=== PATIENT | female | born 1990 | race Caucasian/White ===

== ENCOUNTER 2025-01-19 19:29 | Emergency (ER) | payer BC, SELFPAY ==
[2025-01-19 19:31] VITALS: BP 163/99
--- NOTE | 2025-01-19 20:07 | ED.GENMED ---
History of Present Illness
General
Chief Complaint: Allergic Reaction
Source: patient
Time Seen by Provider: 01/19/25 19:47
History of Present Illness
History of Present Illness:
34-year-old female presents to the emergency room complaining of a itchy rash on her upper abdomen, chest and now neck. Symptoms began yesterday. She was seen at an urgent care today recommended to take Zyrtec. She did take Zyrtec today. When
she noticed the rash extending up towards her neck she also noted a funny feeling in her throat and she thought perhaps her tongue was being swollen. Her [id number]-fed thought her tongue looked larger than normal prompting her to come to the
emergency room. Patient denies any shortness of breath. No new foods or lotions.
Phy Exam
Physical Exam
Physical Exam:
General: Awake, Alert, Oriented X3. No acute distress.
Vitals: unremarkable
Head: Atraumatic
Eyes: Pupils equal, EOMI
Mouth: No angioedema of the lips noted
Throat: Airway intact, no exudates, no angioedema of the oropharynx noted
Neck: Trachea midline
Lungs: Clear and equal b/l
Heart: Regular rate, no murmurs
Abd: Soft, Nontender, No pulsatile mass
Neuro: Nonfocal
Skin: Warm, dry, macular papular type rash noted in the anterior chest up towards the base of the neck. Rash does not exist elsewhere.
Extremities: pulses equal b/l, no edema
Course
Orders/Labs/Results
Orders:
Orders
01/19/25 20:17
Diphenhydramine [Benadryl] 25 mg PO NOW STA
Vital Signs
Initial and Last Documented VS:
Initial Vital Signs
Temp Pulse Resp BP Pulse Ox
98.1 F 87 18 163/99 99
01/19/25 19:31 01/19/25 19:31 01/19/25 19:31 01/19/25 19:31 01/19/25 19:31
Last Documented Vital Signs
Temp Pulse Resp BP Pulse Ox
98.1 F 86 17 145/90 100
01/19/25 19:31 01/19/25 20:38 01/19/25 20:38 01/19/25 20:38 01/19/25 20:38
MDM/Problems Addressed
Differential Diagnosis Includes:
Allergic reaction, eczema , contact dermatitis
MDM/Problems Addressed:
Patient presents with rash which appears benign. I see no evidence for angioedema. Will treat with Benadryl and topical hydrocortisone.
*Pulse Oximetry
Patient hypoxic: no
*Critical Care Note
Total Time (30-74mins, 75-104mins- exclusive of procedures): Not Applicable
ED Attending Note
-
Portions of this chart may have been created with voice recognition software.� Occasional wrong word or��sound alike� substitutions may have occurred due to the inherent limitations of voice recognition software.
Discharge Plan
Departure
Patient Disposition: Home (Routine Discharge)
Date of Disposition: 01/19/25
Time of Disposition: 20:17
Patient with high blood pressure during this ER visit?: No
Condition: Good
Discharge Problem:
Atopic dermatitis
Prescriptions:
No Action
PNV cmb#95-ferrous fumarate-FA [] 1 EACH tablet
1 ea PO DAILY
metformin 500 MG tablet extended release 24 hr
2,000 mg PO DAILY
acetaminophen 325 MG tablet
650 mg PO Q4HPRN PRN (Reason: mild pain) 0RF
ibuprofen 600 MG tablet
600 mg PO Q4HPRN PRN (Reason: cramps) 0RF
Activity Restrictions/Additional Instructions:
You can take Benadryl 25 mg every 6 hours for itching. You can also use hydrocortisone cream on the rash. Follow-up with your [facility]
Interventions
Interventions:
*Risk Screen - Suicide Last Done: 01/19/25 19:34
*General Assessment Last Done: 01/19/25 19:34
*Neglect/Abuse Screening Last Done: 01/19/25 19:34
*ED COVID-19 Vaccine History Last Done: 01/19/25 19:34
*Nursing Disposition Last Done: 01/19/25 20:38
Discharge Date and Time
Discharge Date/Time: 01/19/25 20:38
Print Language: MAORI
[2025-01-19] MEDS: BENADRYL 25 MG PO (20:34)
[2025-01-19 20:38] VITALS: BP 145/90
== END 2025-01-19 20:38 | disposition home or self-care (01) ==
LOC: EMR 19:29
PROVIDERS: EMERGENCY PHYSICIAN Emergency Medicine; FAMILY PHYSICIAN Family Medicine
DX: L20.9 Atopic dermatitis, unspecified (principal); L29.9 Pruritus, unspecified; T78.40XA Allergy, unspecified, initial encounter
CPT/HCPCS: 99283

== ENCOUNTER 2025-03-07 11:08 | Emergency (ER) | payer BC, SELFPAY ==
[2025-03-07 11:08] VITALS: BMI 42.7
[2025-03-07 11:10] VITALS: BP 153/78
[2025-03-07 11:15] VITALS: BP 155/80
[2025-03-07 11:38] VITALS: BP 143/66
--- NOTE | 2025-03-07 12:23 | ED.GENMED ---
History of Present Illness
General
Chief Complaint: Headache
Source: patient
Exam Limitations: none
Time Seen by Provider: 03/07/25 12:07
History of Present Illness
History of Present Illness:
See MDM
Past History
Past History
ED Past Medical History: None
ED Past Surgical History: None
Social History
Tobacco: Non-smoker
Alcohol: None
Phy Exam
Physical Exam
Physical Exam:
See MDM
Course
Orders/Labs/Results
Orders:
Orders
03/07/25 12:21
0.9% Sodium Chloride 1000 ml [Nss] 1,000 ml IV BOLUS
Acetaminophen 1000MG/100Ml [Ofirmev] 1,000 mg in 100 ml IV ONCE
Acetaminophen IV Indication:: ED Narcotic Naive Pt-ONCE
03/07/25 12:32
Complete Blood Count/With Diff Urgent
Comprehensive Metabolic Panel Urgent
Abnormal Lab Results
03/07/25
12:32
WBC 12.8 H 10^3/uL
(4.8-10.8)
RBC 3.71 L 10^6/uL
(4.20-5.40)
Hgb 11.2 L g/dL
(12.0-16.0)
Hct 33.4 L %
(37.0-47.0)
Abs Immat Gran (auto) 0.1 H 10^3/uL
(0-0.05)
Absolute Neuts (auto) 9.3 H 10^3/uL
(1.4-6.5)
Absolute Monos (auto) 0.9 H 10^3/uL
(0.1-0.6)
Lymphocytes % 19.2 L %
(20.5-51.1)
Creatinine 0.5 L mg/dL
(0.6-1.0)
Glucose 67 L mg/dl
(70-99)
03/07/25 12:32
03/07/25 12:32
Vital Signs
Initial and Last Documented VS:
Initial Vital Signs
Temp Pulse Resp BP Pulse Ox
98.5 F 81 16 153/78 99
03/07/25 11:10 03/07/25 11:10 03/07/25 11:10 03/07/25 11:10 03/07/25 11:10
Last Documented Vital Signs
Temp Pulse Resp BP Pulse Ox
98.4 F 72 16 133/57 99
03/07/25 13:45 03/07/25 13:45 03/07/25 13:45 03/07/25 13:45 03/07/25 13:45
MDM/Problems Addressed
Differential Diagnosis Includes:
HPI and MDM Narrative:
34-year-old female presenting for evaluation of headache. Patient is G2, P1 at approximately 12 weeks gestation. She had spoke to her doctor about headache and dizziness for 2 days. This is associated with photophobia and phonophobia. She does
have a history of migraines but states this feels worse. Tylenol offers minimal relief. She denies nausea or vomiting or blurry vision. She is also complaining of mild vaginal spotting but is not necessarily concerned about that. I did a bedside
ultrasound confirming live IUP with heartbeat in the 140s.. She denies abdominal pain. In regards to headache, we discussed likely migraine versus tension. There is low utility in CT scan we also discussed the radiation risk to the fetus..
Patient agrees. Will give IV fluids and IV Tylenol and obtain basic blood work especially since blood pressure is mildly elevated. She denies prior history of preeclampsia or blood pressure issues
Physical exam
General: Well appearing and non-toxic
HEENT: protecting airway. EOMI. Pupils equal reactive. No tenderness to temporal palpation
Neck: appears supple
CV: No evidence of cyanosis
Resp: No accessory muscle use
Abd: Non-distended. Soft and nontender
Extremities: No deformities
Neuro: alert
Psych: Normal affect
Skin: Intact
Problems Addressed including Acute and Chronic Conditions affecting care:
1. Headache
Acuity: acute
Prognosis: stable
Details: Likely in setting of migraine. Will give IV fluids and IV Tylenol. We discussed low utility in CT scan
2. Vaginal spotting
Acuity: acute
Prognosis: stable
Details: Bedside ultrasound shows live IUP. Discussed outpatient OB follow-up
Updates
Blood work without any evidence of abnormal platelets or LFTs. On reassessment after fluids and IV Tylenol, patient states she is feeling much better. Repeat blood pressure 130s/60s. Discussed follow-up
Differential Diagnosis (but not limited to): Threatened miscarriage, preeclampsia, migraine
Testing considered: CT head but low suspicion for intracranial mass or hemorrhage
Drug therapy (if applicable): OTC meds, please see d/c instruction regarding Rx drugs
Amount and/or Complexity of Data Reviewed
Clinical info obtained from: Patient
External data reviewed: N/A
Labs I independently reviewed (but not limited to): Platelets and LFTs normal
Radiology: N/A
Pulse Ox: not hypoxic
EKG independently reviewed: N/A
Traffic Operator: Sinus rhythm
Critical Care: N/A
Risk of Complication:
Social Determinants of health: Good social support
Discussed with other providers: N/A
Escalation of Care includes Admit/Obs: After being observed in the Emergency Department, pt stable for discharge.
Occasional wrong word or 'sound a like' substitutions may have occurred due to the inherent limitations of voice recognition software. Read the chart carefully and recognize, using context, where substitutions have occurred.
*Critical Care Note
Total Time (30-74mins, 75-104mins- exclusive of procedures): Not Applicable
ED Attending Note
-
Portions of this chart may have been created with voice recognition software.� Occasional wrong word or��sound alike� substitutions may have occurred due to the inherent limitations of voice recognition software.
Discharge Plan
Departure
Patient Disposition: Home (Routine Discharge)
Date of Disposition: 03/07/25
Time of Disposition: 13:56
Patient with high blood pressure during this ER visit?: Yes
Discharge Problem:
Migraine
Instructions: Migraines (DC), BLOOD PRESSURE
Prescriptions:
No Action
PNV cmb#95-ferrous fumarate-FA [] 1 EACH tablet
1 ea PO DAILY
metformin 500 MG tablet extended release 24 hr
2,000 mg PO DAILY
acetaminophen 325 MG tablet
650 mg PO Q4HPRN PRN (Reason: mild pain) 0RF
ibuprofen 600 MG tablet
600 mg PO Q4HPRN PRN (Reason: cramps) 0RF
Referrals:
Vinny Dinero MD [Family Provider, Family Practice]
Activity Restrictions/Additional Instructions:
Please return for any worsening symptoms.
You may return at any time if you have further concerns.
Please follow up with your OB at the first available appointment, preferably this week. Please discuss your blood pressure elevation and spotting.
Thank you for choosing [facility].
Interventions
Interventions:
*Risk Screen - Suicide Last Done: 03/07/25 11:10
*General Assessment Last Done: 03/07/25 11:39
*Neglect/Abuse Screening Last Done: 03/07/25 11:10
*ED- Fall Risk Assessment Last Done: 03/07/25 11:39
*ED COVID-19 Vaccine History Last Done: 03/07/25 11:39
ED- Neurological Assessment Last Done: 03/07/25 11:41
Discharge Date and Time
Print Language: MALAY
[2025-03-07] MEDS: OFIRMEV 100 IV (12:39)
[2025-03-07] MEDS: NSS 1000 IV (12:39)
[2025-03-07 12:53] LABS: % Basophils 0.4 % (0-2); % Eosinophils 0.8 % (0-6); % Immature Granulocytes 0.4 % (0-0.5); % Lymphocytes 19.2 % (20.5-51.1); % Monocytes 6.8 % (1.7-9.3); % Neutrophils 72.4 % (42.2-75.2); Absolute Basophils 0.1 10^3/uL (0-0.2); Absolute Eosinophils 0.1 10^3/uL (0-0.7); Absolute Immature Granulocytes 0.1 10^3/uL (0-0.05); Absolute Lymphocytes 2.5 10^3/uL (1.2-3.4); Absolute Monocytes 0.9 10^3/uL (0.1-0.6); Absolute Neutrophils 9.3 10^3/uL (1.4-6.5); Hematocrit 33.4 % (37.0-47.0); Hemoglobin 11.2 g/dL (12.0-16.0); Mean Corp Hgb Conc. 33.5 g/dL (33.0-37.0); Mean Corpuscular Hgb 30.2 pg (27.0-31.0); Mean Platelet Volume 10.1 fL (7.4-10.4); Nucleated Red Blood Cells % 0 %; Platelet Count 298 10^3/uL (130-400); Red Blood Cell Count 3.71 10^6/uL (4.20-5.40); Red Cell Dist. Width 14.1 % (11.5-14.5); White Blood Cell Count 12.8 10^3/uL (4.8-10.8)
[2025-03-07 13:07] LABS: ALT (SGPT) 17 U/L (0-35); AST (SGOT) 18 U/L (14-36); Albumin 3.7 g/dl (3.5-5.0); Alkaline Phosphatase 62 U/L (38-126); Blood Urea Nitrogen 10 mg/dl (7-17); Calcium 9.1 mg/dl (8.4-10.2); Carbon Dioxide 24 mmol/L (22-30); Chloride 107 mmol/L (98-107); Estimated Creatinine Clearance > 125 ml/min; Glucose 67 mg/dl (70-99); Sodium 137 mmol/L (135-145); Total Bilirubin 0.3 mg/dl (0.2-1.3); Total Protein 6.5 g/dl (6.3-8.2); eGFR > 60.00
[2025-03-07 13:45] VITALS: BP 133/57
== END 2025-03-07 14:04 | disposition home or self-care (01) ==
LOC: EMR 11:08
PROVIDERS: EMERGENCY PHYSICIAN Student in an Organized Health Care Education/Training Program; FAMILY PHYSICIAN Family Medicine
DX: O99.891 Other specified diseases and conditions complicating pregnancy (principal); G43.909 Migraine, unspecified, not intractable, without status migrainosus; O26.851 Spotting complicating pregnancy, first trimester; O09.521 Supervision of elderly multigravida, first trimester; Z3A.12 12 weeks gestation of pregnancy
CPT/HCPCS: 96374; 96361; 99284; 80053; 85025